=== PATIENT | male | born 1985 | race Caucasian/White ===

== ENCOUNTER → 2018-02-28 09:44 | Outpatient (CLI) | payer MEDICAID, SELFPAY ==
--- NOTE | 2018-02-28 09:45 | MRI_ITS ---
STUDY: MRI LUMBAR SPINE WITH AND WITHOUT CONTRAST REASON FOR EXAM: Male, 32 years old. Low back pain. Patient had spinal surgery 4 years ago. TECHNIQUE: Standardized fat and water weighted pulse sequences were obtained in the sagittal and axial planes. 10 ml of Gadavist contrast material was administered for the contrast portion of the examination. COMPARISON: CT of the lumbar spine dated March 17, 2017. FINDINGS: T12-L1: Normal endplates. Normal disc height, signal and morphology. Normal bilateral facet joints. Normal central canal and bilateral lateral recesses. Normal bilateral intervertebral neural foramina. There is an exaggerated lumbar lordosis. There is grade 1 spondylolisthesis at L5-S1. There is no substantial scoliosis. Normal conus medullaris that terminates at the L1 level. L1-2: Normal endplates. Normal disc height, signal and morphology. Normal bilateral facet joints. Normal central canal and bilateral lateral recesses. Normal bilateral intervertebral neural foramina. L2-3: Normal endplates. Normal disc height, signal and morphology. Normal bilateral facet joints. Normal central canal and bilateral lateral recesses. Normal bilateral intervertebral neural foramina. L3-4: There is a broad central disc protrusion and osteophyte complex. There is moderately severe degenerative arthropathy of the facet joints. There is mild central acquired canal stenosis. Neural foramina are severely narrowed with possible impingement of bilateral L3 nerve roots at the neural foramina. L4-5: There is mild annular disk bulge and osteophyte complex. There is mild degenerative arthropathy of the facet joints. Bilateral neuroforamina are narrowed without MR evidence for nerve impingement. There is no significant acquired central canal stenosis. L5-S1: There is severe narrowing of the disc. There are postoperative changes involving the posterior elements of L4 and L5. There is uncovering the disc related to the anterolisthesis. There is severe bilateral foraminal narrowing with probable impingement of bilateral L5 nerve roots at the neural foramina. Curvilinear areas of abnormal signal within the sacral ala suggests previous location of interpedicular screws. Imaged paraspinal soft tissues are within normal limits. Normal visualized paraspinous soft tissue structures. There is no demonstrated abnormal enhancement. MRI/Spine Lumbar W/WO Contrast IMPRESSION: 1. Postoperative changes at L4, L5 and S1. 2. Grade 1 spondylolisthesis at L5-S1. 3. Multilevel degenerative disc disease and degenerative arthropathy of the lumbar spine with neural foraminal narrowing and potential nerve impingement, as described. Electronically Signed: Nilda Bruner MD at 11:47 EDT , Service support ,
== END ==
PROVIDERS: Family Provider Nurse Practitioner Family; PCP Nurse Practitioner Family; Referring Provider Orthopaedic Surgery; Visit Provider Orthopaedic Surgery
DX: M51.16 Intervertebral disc disorders with radiculopathy, lumbar region (principal); M43.17 Spondylolisthesis, lumbosacral region
CPT/HCPCS: 72158; A9585

== ENCOUNTER 2018-04-14 12:00 | Outpatient (RCR) | payer MEDICAID, SELFPAY ==
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
--- NOTE | 2018-03-03 13:14 | HP.PTREVAL ---
Sharon Baez, It has been my pleasure to treat PIERRE REYNAGA over the last 9 visits for LOW BACK PAIN. Please see the progress note below for an update on the physical therapy plan of care! Subjective: PATIENT REPORTS HE IS A LITTLE BIT BETTER. HE REPORTS HIS LEG USE IS BETTER AND HE FEELS STRONGER IN HIS CORE. HE ALSO REPORTS HIS BLOOD PRESSURE HAS GONE DOWN TREMENDOUSLY SINCE STARTING POOL THERAPY TOO. HAD MRI WEDNESDAY AND WAITING ON APPOINTMENT WITH DR. BAEZ. NOT TOBACCO FREE YET BUT ALMOST THERE. PATIENT REPORTS HE FEELS THE POOL THERAPY IS HELPING HIM EVEN MORE THIS TIME THAN LAST TIME. Objective/Function: SURGERY PENDING WITH DR. BAEZ WHEN PATIENT IS TOBACCO FREE PER PATIENT REPORT. WOULD RECOMMEND CONTINUED AQUATIC THERAPY AT THIS TIME DUE TO PROGRESS MADE AND ROOM FOR FURTHER IMPROVEMENT PRIOR TO SX. PATIENT IS MAKING SLOW PROGRESS TOWARD SET PT GOALS AND DEMONSTRATES MORE ERECT POSTURE WITH GAIT TODAY, BETTER TOLERANCE TO GAIT ALLOWING HIM TO PARTICIPATE MORE IN ADLS AND HE IS REPORTING LESS PAIN IN CONJUNCTION WITH PARTICIPATING IN PRE IN THE POOL. UPON EXAM TODAY: PATIENT DEMO'S INDEP GAIT INTO PT WITH MILD INCREASED TRUNK FLEXION AND A MILD LIMP ON THE RIGHT LE. NO AD'S. INDEP TRANSFER SIT TO STAND WITHOUT UE ASSIST. Motor deficit: CLYDE HIPS 4/5, CLYDE KNEES 5/5, CLYDE ANKLES 5/5. PATIENT IS ABLE TO HEEL WALK AND TOE WALK. ROM deficit: TIGHT RIGHT HS. LEFT HS WFL. TIGHT CLYDE HIP FLEXORS. Reflexes: CLYDE QUAD DTR'S 2/3. UNABLE TO ELICIT CLYDE ACHILLES REFLEX'S. Dural Signs: POSITIVE CLYDE LE'S RIGHT > LEFT. Lumbar mvmt loss: NT. Core strength: POOR BUT IMPROVING WITH AQUATIC THERAPY. Palpation: PATIENT IS STILL VERY TENDER WITH LIGHT PALPATION OF THE ENTIRE LOWER THORACIC, LUMBAR, SACRAL AND PELVIC AREAS INTO RIGHT HIP. Plan Plan: POSTURE CORRECTION/STRENGTHENING, INSTRUCTION IN APPROPRIATE BODY MECHANICS AND ACTIVITY MODIFICATIONS. DLS WITH NEUTRAL SPINE ONLY. CLYDE LE ROM, STRETCHING AND STRENGTHENING. *DESENSITIZATION* OF BACK AND PELVIC REGIONS. HEP INSTRUCTION. Goals Goal 1:: DECREASE C/O SPINE AND RIGHT LE SX'S. Goal Time Frame: 6-8 Weeks Goal Progress: Progressing Goal 2:: IMPROVE PERSONAL CARE, LIFTING, WALKING, SITTING, STANDING, SLEEP, SOCIAL LIFE, TRAVEL AND EMPLOYMENT FUNCTION Goal Time Frame: 6-8 Weeks Goal Progress: Progressing Goal 3:: INSTRUCT IN PROPHYLAXIS Goal Time Frame: 6-8 Weeks Goal Progress: Progressing Anticipated Interventions Patient/Client Instruction: Educate patient on: Condition, Plan of Care, Risk Factors, Benefits of Fitness Program For the Purpose of:: To improve self management Therapeutic Exercise to Include: Strength training, Body mechanics, Postural training, Flexibilty training, In an aquatic setting, Active ROM, Dynamic Lumbar Stabilization For the Purpose of:: To decrease pain, To improve muscle performance and motor function, To increase tolerance to activity/condition/position, To improve ability of physical actions for home/community/work/leisure, To improve gait and locomotor functions Please do not hesitate to contact me at [phone] by phone or if you have questions or concerns regarding this new plan of care! Sincerely, Maggie Hoyos
--- NOTE | 2018-04-14 13:44 | HP.PTDCSUM_ITS ---
HP - PT D/C Summary It has been my pleasure to treat PIERRE REYNAGA under orders from Sharon Baez, for the diagnosis of LOW BACK PAIN for a total of 17 visit(s). Discharge Date: 04/14/18 Please see the following information for a summary of their discharge status. - Subjective Subjective: PATIENT REPORTS GOING UP STEPS (MY RIGHT LEG HAS MORE STRENGTH AND LESS PAIN), BENDING, DOING HOUSEWORK AND WALKING HAVE ALL IMPROVED SINCE STARTING PT. PATIENT REPORTS HE IS CONTINUING TO LOSE WEIGHT ON PURPOSE. SAW DR. BAEZ LAST WEEK - SHE STILL RECOMMENDS SURGERY AND THINKS SHE CAN REDUCE HIS PAIN BY ABOUT 50%. HE REPORTS SHE ALSO EXPLAINED THE RISKS. SHE IS RECOMMENDING BOTH SIDE AND POSTERIOR APPROACHES. HE REPORTS HE AND DR. BAEZ DEFINATELY SEE THE BENEFITS FROM AQUATIC THERAPY SO FAR AND THE PLAN IS TO RETURN TO AQUATIC THERAPY POST SURGERY. THE RECOMMENDATION IS FOR FUSION FROM L1 TO THE SACRUM. HE THINKS HE IS GOING TO GO AHEAD WITH SURGERY BUT HAS NOT BEEN SCHEDULED YET. NEXT APPOINTMENT WITH DR. BAEZ IS IN TWO WEEKS IF NEEDED. HOPING TO BE TOBACCO FREE BY TOMORROW. HAS TO BE TOBACCO FREE FOR AT LEAST 4 WEEKS BEFORE SURGERY. PATIENT REPORTS EVERYONE IS REALLY SURPRISED HOW MUCH STRONGER HE IS AND HOW MUCH BETTER HE IS MOVING SO HE IS HOPING SURGERY HELPS WITH THE PAIN. - Pain Lumbar Spine Pain Intensity (Out of 10): 5 RLE Pain Intensity (Out of 10): 3 - Overall Improvement % Improvement: 30 - Objective Objective/Function: PATIENT IS DEMONSTRATING INCREASED RIGHT LE STRENGTH, INCREASED RIGHT LE FLEXABILITY AND IMPROVED GAIT. HE IS ALSO MUCH LESS TENDER IN HIS BACK AND GAINING CORE STRENGTH. UPON EXAM TODAY: PATIENT DEMO'S INDEP GAIT INTO PT WITH VERY MILD INCREASED TRUNK FLEXION AND ACTUALLY NO LIMP ON THE RIGHT LE. PATIENT REPORTS HIS LIMP STARTED TO GO AWAY ABOUT 2 WEEKS AGO. NO AD'S. INDEP TRANSFER SIT TO STAND WITHOUT UE ASSIST. Motor deficit: RIGHT HIP 4/5, LEFT HIP 5/5, CLYDE KNEES 5/5, CLYDE ANKLES 5/5. PATIENT IS ABLE TO HEEL WALK AND TOE WALK. ROM deficit: RIGHT HS WFL. LEFT HS WFL. TIGHT CLYDE HIP FLEXORS. Reflexes: CLYDE QUAD DTR'S 2/3. UNABLE TO ELICIT CLYDE ACHILLES REFLEX'S. Dural Signs: POSITIVE CLYDE LE'S RIGHT > LEFT BUT MORE MILDLY POSITIVE THEN LAST RE- CHECK. Lumbar mvmt loss: NT. Core strength: POOR TO FAIR - SOME IMPROVEMENT SINCE EVAL. Palpation: PATIENT IS NOT NEAR TENDER WITH LIGHT PALPATION OF HIS BACK BUT THERE ARE STILL A COUPLE TENDER SPOTS MID INCISION, DISTAL END OF INCISION AND ALONG LEFT PARASPINALS TODAY (USUALLY MORE ON RIGHT)RIGHT HIP/BUTTOCK IS SPINNER TENDER TOO. LUMBAR OSWESTRY SCORE HAS IMPROVED TO 19. RECOMMEND PATIENT CONTINUE AQUATIC THERAPY INDEP' 3 TIMES A WEEK UNTIL SURGERY AND RESUME AFTER SURGERY WHEN OK'D BY DR. BAEZ - PATIENT IS AGREEABLE. - Goals Goal 1:: DECREASE C/O SPINE AND RIGHT LE SX'S. Goal Progress: Goal Met Goal 2:: IMPROVE PERSONAL CARE, LIFTING, WALKING, SITTING, STANDING, SLEEP, SOCIAL LIFE, TRAVEL AND EMPLOYMENT FUNCTION Goal Progress: Goal Met Goal 3:: INSTRUCT IN PROPHYLAXIS Goal Progress: Goal Met - Plan Plan: D/C TO INDEP POOL EX. - D/C Information If there are questions or concerns regarding this patient's physical therapy, please feel free to call me at [phone]. Thank you for the referral of this patient. Sincerely, Maggie Hoyos
== END 2018-04-14 19:00 | disposition home or self-care (01) ==
LOC: PT 12:00
PROVIDERS: Family Provider Nurse Practitioner Family; PCP Nurse Practitioner Family; Referring Provider Orthopaedic Surgery; Visit Provider Orthopaedic Surgery
DX: M54.5 Low back pain (principal)
CPT/HCPCS: 97113; 97162; 97530

== ENCOUNTER 2018-07-21 18:30 | Emergency (ER) | payer MEDICAID, SELFPAY ==
[2018-07-21 18:32] VITALS: BP 145/102; PULSE 94; RESP 17; TEMP 35.9; O2SAT 98; BMI 35.4
[2018-07-21 18:57] VITALS: RESP 18
--- NOTE | 2018-07-21 19:26 | ED.VISSUMM ---
- ER Visit Summary Date of Service: 07/21/18 Chief Complaint: Back pain History of Present Illness: The patient is a 32 M with 3 prior back pain surgeries presents with worsening of his back pain. He is in pain management but could not be seen for another 5-6 weeks. He denies any fevers or chills. He has no bowel or bladder compromise. He does not have urinary retention symptoms. He does not have pain in the suprapubic region. His pain does radiate to his right leg this is chronic he has some paresthesias in his right leg which is also chronic from prior surgeries. He denies any saddle anesthesia. Physical Examination: Patient has a soft and nontender abdomen, no suprapubic pain or mass. He is got a well-healed scar in the lumbar region. His pain is in the lumbar region. He has a positive straight leg test on the right, he has some paresthesias on the outer thigh region and inner calf region. He has 1+ reflex on the right 2+ reflex on the left, he has 1+ Achilles reflexes bilaterally he has normal plantar flexion of both feet normal dorsiflexion of both feet angry and toes. He has normal strength of both lower extremities. Rectal exam was done by me he is got normal rectal tone and sensation. Emergency Department Course and Treatment: Patient certainly has neurological symptoms but they are all chronic. Seems to be the issue today is pain. I gave him Dilaudid IM in the emergency department and was given Percocets for home. He can follow-up with his surgeon at [facility], apparently he is due to have another surgery in the next month. I talked to him and his mom about neurological symptoms if the neurological symptoms worsen he must come back. He knows that urinary retention, bowel compromise, saddle anesthesia or foot drop are signs to come right back to the emergency department. Because of his prior and likely near future surgery I will not give steroids. Disposition: Discharge stable condition Impression: [Back pain with sciatica] This note was generated with [employer] dictation software. It may contain incorrect words, spelling, and punctuation that were not noted in review of the chart prior to signing ED Disposition - Plan for ED Patient: Disposition: Home or Assisted Living Instructions: ED Low Back Pain Injury Prescriptions: Oxycodone HCl/Acetaminophen [Percocet 5/325] 1 tab PO Q6H PRN PRN 3 Days #12 tab PRN Reason: Pain Gabapentin [Neurontin] 600 mg PO TID #180 cap Additional Instructions: Follow up with your surgeon at [facility] as soon as possible
[2018-07-21] MEDS: HYDROmorphone 1 MG/ML Syringe IM (20:00)
[2018-07-21 20:36] VITALS: RESP 16; O2SAT 99
== END 2018-07-21 20:36 | disposition home or self-care (01) ==
LOC: ED 19:43
PROVIDERS: Emergency Provider Emergency Medicine; Family Provider Nurse Practitioner Family; PCP Nurse Practitioner Family
DX: M54.40 Lumbago with sciatica, unspecified side (principal); G89.29 Other chronic pain
CPT/HCPCS: 96372; 99283

== ENCOUNTER → 2018-08-02 08:15 | Outpatient (CLI) | payer MEDICAID, SELFPAY ==
[2018-08-02 08:08] VITALS: BMI 35.4
--- NOTE | 2018-08-02 08:16 | RAD_ITS ---
HISTORY: LOW BACK PAIN. PREV L5 SURGERY. RECENT FALL EXAM/TECHNIQUE: XR Spine Lumbar Min 4 Views: COMPARISON: None. FINDINGS: # of images incl. paperwork: 4 No acute fracture or dislocation or osseous destruction. Bilateral L5 spondylolysis and L5 laminectomy. 1.4 cm anterolisthesis of L4 on L5 which does not significantly change with flexion or extension. Otherwise alignment is anatomic. Marked facet degeneration L4-5 and L5-S1 again demonstrated. Mild degenerative changes. No acute findings in the soft tissues. RAD/L/S Spine Min 4 Views IMPRESSION: No acute findings. Bilateral L5 spondylolysis and L5 laminectomy. 1.4 cm anterolisthesis of L4 on L5 which does not significantly change with flexion or extension. at 1010 Reported and signed by: Fredy Rodriguez MD Electronically Signed: Fredy Rodriguez, at 10:08 EDT Tel , Service support ,
== END ==
PROVIDERS: Family Provider Nurse Practitioner Family; PCP Nurse Practitioner Family; Referring Provider Orthopaedic Surgery; Visit Provider Orthopaedic Surgery
DX: M48.062 Spinal stenosis, lumbar region with neurogenic claudication (principal)
CPT/HCPCS: 72110

== ENCOUNTER → 2018-09-01 15:18 | Outpatient (CLI) | payer MEDICAID, SELFPAY ==
[2018-08-02 08:08] VITALS: BMI 35.4
--- NOTE | 2018-09-01 15:20 | MRI_ITS ---
STUDY: MRI LUMBAR SPINE WITH AND WITHOUT CONTRAST REASON FOR EXAM: Male, 32 years old. Fall 6 months ago, right leg numbness TECHNIQUE: Standardized fat and water weighted pulse sequences were obtained in the sagittal and axial planes. 20 IV Dotarem was administered for the contrast portion of the examination. COMPARISON: 02/28/2018 FINDINGS: T12-L1: Normal endplates. Normal disc height, hydration and morphology. Normal bilateral facet joints. Normal central canal and bilateral lateral recesses. Normal bilateral intervertebral neural foramina. There is no substantial scoliosis. Normal conus medullaris that terminates at the L1 level. L1-2: Normal endplates. Normal disc height, hydration and morphology. Normal bilateral facet joints. Normal central canal and bilateral lateral recesses. Normal bilateral intervertebral neural foramina. L2-3: Normal endplates. Normal disc height, hydration and morphology. Normal bilateral facet joints. Normal central canal and bilateral lateral recesses. Normal bilateral intervertebral neural foramina. L3-4: Bulging annulus with mild central canal stenosis and moderate to severe left and moderate right foraminal stenoses. L4-5: Bilateral laminectomies. No residual compressive sequelae. Remote bilateral pedicle hardware defects. L5-S1: Grade 1 anterolisthesis, unchanged. Residual disc osteophyte complex and bilateral facet hypertrophy. Severe bilateral foraminal stenoses, unchanged. Mass effect on both exiting L5 nerve roots. Remote hardware defects in the sacrum. Normal visualized paraspinous soft tissue structures. MRI/Spine Lumbar W/WO Contrast IMPRESSION: Multilevel degenerative disease and postoperative change as described. Moderate to severe left foraminal stenosis at the L3-4 level. Severe bilateral foraminal stenoses at the L5-S1 level, with mass effect on both exiting L5 nerve roots. Electronically Signed: Terell Gu MD at 11:46 EDT Tel , Service support ,
== END ==
PROVIDERS: Family Provider Nurse Practitioner Family; PCP Nurse Practitioner Family; Referring Provider Orthopaedic Surgery; Visit Provider Orthopaedic Surgery
DX: M48.062 Spinal stenosis, lumbar region with neurogenic claudication (principal)
CPT/HCPCS: 72158; A9575

== ENCOUNTER → 2018-11-15 11:17 | Outpatient (CLI) | payer MEDICAID, SELFPAY ==
[2018-11-15 10:56] VITALS: BMI 35.4
--- NOTE | 2018-11-15 11:19 | RAD_ITS ---
STUDY: X-RAY - LUMBAR SPINE REASON FOR EXAM: Male, 33 years old. Pain TECHNIQUE: 2 view(s) of the lumbar spine were obtained. COMPARISON: 08/02/2018 FINDINGS: Bilateral posterior pedicle fusions at the L3 and L4 levels. Surgical fusion of the L3-4 disc space. L3-4 and L4-5 laminectomies. Stable grade 2 L5-S1 anterolisthesis. Degenerative disc disease at the L4-5 level. No new compression deformities are seen. Soft tissues are intact. RAD/Lumbar Spine 2 or 3 Views IMPRESSION: Multilevel degenerative disease and postoperative change as described. Stable grade 2 L5-S1 anterolisthesis. Electronically Signed: Terell Gu MD at 17:04 EDT Tel , Service support ,
== END ==
PROVIDERS: Family Provider Nurse Practitioner Family; PCP Nurse Practitioner Family; Referring Provider Orthopaedic Surgery; Visit Provider Orthopaedic Surgery
DX: Z98.1 Arthrodesis status (principal)
CPT/HCPCS: 72100

== ENCOUNTER → 2018-12-20 12:35 | Outpatient (CLI) | payer MEDICAID, SELFPAY ==
[2018-11-15 10:56] VITALS: BMI 35.4
--- NOTE | 2018-12-20 12:36 | RAD_ITS ---
STUDY: X-RAY - LUMBAR SPINE REASON FOR EXAM: Male, 33 years old. Postop fusion TECHNIQUE: 2 view(s) of the lumbar spine were obtained. COMPARISON: November 15, 2018 lumbar spine x-ray FINDINGS: There is exaggerated physiologic lordosis. There is no substantial scoliosis. There is a grade 2 spondylolisthesis at the level of L5-S1. There is a stable appearance of the lumbar spine fusion at the level of L4-L5. There is minimal spondylosis. There is degenerative change at T11-T12. There is a disc spacer at the level of L4-L5. The soft tissue structures are unremarkable. RAD/Lumbar Spine 2 or 3 Views IMPRESSION: Persistent grade 2 spondylolisthesis with spondylolysis at the level of L5-S1. Stable appearing lumbar spine fusion at the level of L4-L5. Electronically Signed: Roro Hickman MD at 22:49 EDT Tel , Service support ,
== END ==
PROVIDERS: Family Provider Nurse Practitioner Family; PCP Nurse Practitioner Family; Referring Provider Orthopaedic Surgery; Visit Provider Orthopaedic Surgery
DX: M43.17 Spondylolisthesis, lumbosacral region (principal); Z98.1 Arthrodesis status
CPT/HCPCS: 72100

== ENCOUNTER → 2019-03-21 11:02 | Outpatient (CLI) | payer MEDICAID, SELFPAY ==
[2019-03-21 10:58] VITALS: BMI 35.4
--- NOTE | 2019-03-21 11:02 | RAD_ITS ---
HISTORY: PAIN TECHNIQUE: Lumbar spine 2 views Number of images including paperwork: 2 COMPARISON: 12/20/2018 FINDINGS: VERTEBRAE: No acute fracture. Postoperative changes of L3-5 laminectomies. VERTEBRAL ALIGNMENT: No traumatic subluxation. Approximate 1.5 cm of anterolisthesis of L5 on S1. Exaggerated lumbar lordosis again seen. DISKS AND JOINTS: Spinal fusion noted at L3-4 with posterior rods, pedicle screws and a disc spacer. SOFT TISSUES: Unremarkable paraspinous soft tissues. RAD/Lumbar Spine 2 or 3 Views IMPRESSION: No acute osseous abnormality. Postoperative changes. Anterolisthesis at L5-S1 appear similar. at 2338 Reported and signed by: Kaye Hernandez MD Electronically Signed: Kaye Hernandez MD at 23:38 EST Tel , Service support ,
== END ==
PROVIDERS: Family Provider Nurse Practitioner Family; PCP Nurse Practitioner Family; Referring Provider Orthopaedic Surgery; Visit Provider Orthopaedic Surgery
DX: Z98.1 Arthrodesis status (principal)
CPT/HCPCS: 72100

== ENCOUNTER 2019-03-27 12:55 | Outpatient (RCR) | payer MEDICAID, SELFPAY ==
[2019-03-21 10:58] VITALS: BMI 35.4
== END 2019-03-27 19:00 | disposition home or self-care (01) ==
LOC: PT 12:55
PROVIDERS: Family Provider Nurse Practitioner Family; PCP Nurse Practitioner Family; Referring Provider Orthopaedic Surgery; Visit Provider Orthopaedic Surgery
DX: Z98.890 Other specified postprocedural states (principal)

== ENCOUNTER 2019-07-04 13:00 | Outpatient (RCR) | payer MEDICAID, SELFPAY ==
[2018-12-20 12:37] VITALS: BMI 35.4
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
--- NOTE | 2019-02-02 12:38 | HP.PTREVAL ---
Sharon Prajapati MD, It has been my pleasure to treat PIERRE REYNAGA over the last 7 visits for S/P LUMBAR FUSION. Please see the progress note below for an update on the physical therapy plan of care! Subjective: Muscular sore after last AT visit, But it felt really Objective/Function: Denies problems with new stretch HEP. Progressing all scap stabilizing tasks to HEP With written descriptions and O/GTB. Cues for abdominal bracing and reduced shldr elevation compensations - fair return. Instructed to complete in front of a mirror at home for improved technique. Plan Plan: f/u with new scap stab. exc. *x1 more visit before f/u with supervising PT. Goals Goal 1:: DECREASE C/O RIGHT AND CENTRAL LBP AND RIGHT CALF SX'S. Goal Time Frame: 4-6 Weeks Goal 2:: IMPROVE BENDING, LIFTING, STANDING, WALKING, ADL, SITTING, WORK AND RECREATIONAL FUNCTION Goal Time Frame: 4-6 Weeks Goal 3:: INSTRUCT IN PROPHYLAXIS Goal Time Frame: 4-6 Weeks Anticipated Interventions Patient/Client Instruction: Educate patient on: Condition, Plan of Care, Risk Factors, Benefits of Fitness Program For the Purpose of:: To improve self management Therapeutic Exercise to Include: Strength training, Body mechanics, Postural training, Flexibilty training, In an aquatic setting, Active ROM, Dynamic Lumbar Stabilization, Scapular Strength/Stabilization For the Purpose of:: To decrease pain, To increase ROM, To improve muscle performance and motor function, To increase tolerance to activity/condition/position, To improve ability of physical actions for home/community/work/leisure Please do not hesitate to contact me at [phone] by phone or if you have questions or concerns regarding this new plan of care! Sincerely, Maggie Hoyos, PT, Cert MDT
--- NOTE | 2019-02-02 13:55 | HP.PTREVAL ---
Sharon Prajapati MD, It has been my pleasure to treat PIERRE REYNAGA over the last 8 visits for S/P LUMBAR FUSION. Please see the progress note below for an update on the physical therapy plan of care! Subjective: PATIENT REPORTS THE THERAPY IS HELPINIG TREMENDOUSLY Objective/Function: PATIENT IS MAKING GREAT PROGRESS TOWARD ALL PT GOALS. HIS CORE AND LE STRENGTH IS IMPROVING, HIS BACK ROM HAS IMPROVED AND HIS ACTIVITY LEVEL IS INCREASING. HE IS BECOMING INDEP WITH A POOL EX PROGRAM AND I ANTICIPATE HIM BEING ABLE TO START TRANSITIONING TO INDEP POOL EX SOON. HE HAS A MEMBERSHIP HERE AT [email or web address] TO HELP WITH THAT TRANISITION. UPON EXAM TODAY HIS CORE STRENGTH IS STILL POOR BUT HE IS TOLERATING PRE IN THE POOL. LE STRENGTH IS 5/5 WITH MMT'ING EXCEPT RIGHT HIP 4/5. RIGHT CALF STILL HAS SOME DECREASED LIGHT TOUCH SENSATION. HE IS MUCH LESS TENDER IN HIS LOW BACK AND TENDERNESS IS MORE LOCALIZED TO THE LOWER LUMBAR REGION. Plan Plan: CONT PER POC Goals Goal 1:: DECREASE C/O RIGHT AND CENTRAL LBP AND RIGHT CALF SX'S. Goal Time Frame: 4-6 Weeks Goal Progress: Progressing Goal 2:: IMPROVE BENDING, LIFTING, STANDING, WALKING, ADL, SITTING, WORK AND RECREATIONAL FUNCTION Goal Time Frame: 4-6 Weeks Goal Progress: Progressing Goal 3:: INSTRUCT IN PROPHYLAXIS Goal Time Frame: 4-6 Weeks Goal Progress: Progressing Anticipated Interventions Patient/Client Instruction: Educate patient on: Condition, Plan of Care, Risk Factors, Benefits of Fitness Program For the Purpose of:: To improve self management Therapeutic Exercise to Include: Strength training, Body mechanics, Postural training, Flexibilty training, In an aquatic setting, Active ROM, Dynamic Lumbar Stabilization, Scapular Strength/Stabilization For the Purpose of:: To decrease pain, To increase ROM, To improve muscle performance and motor function, To increase tolerance to activity/condition/position, To improve ability of physical actions for home/community/work/leisure Please do not hesitate to contact me at [phone] by phone or if you have questions or concerns regarding this new plan of care! Sincerely, Maggie Hoyos, PT, Cert MDT
--- NOTE | 2019-02-28 12:34 | HP.PTDCSUM ---
HP - PT D/C Summary It has been my pleasure to treat PIERRE REYNAGA under orders from Sharon Baez MD, for the diagnosis of S/P LUMBAR FUSION for a total of 14 visit(s). Discharge Date: Please see the following information for a summary of their discharge status. - Subjective Subjective: PATIENT REPORTS HE HAS GOT A LOT OF FEELING BACK IN HIS RIGHT LEG AND IT IS GETTING STRONGER. F/U WITH DR. BAEZ MAR 21 2019 - Pain LUmbar Spine Pain Intensity (Out of 10): 5 - Overall Improvement % Improvement: 70 - Objective Objective/Function: ALL GOALS MET. PATIENT STILL HAS RIGHT LE WEAKNESS BUT IS INDEP WITH A WATER EX PROGRAM AND HAS A MEMBERSHIP THAT HE CAN USE TO CONTINUE INDEP WATER EX. UPON EXAM TODAY HE STILL HAS A POSTIVE RIGHT LE DURAL TEST ALSO. Lumbar mvmt loss: FLEX - MIN, EXT - SADAF, RSG MOD, LEFT SG - SADAF. - Goals Goal 1:: DECREASE C/O RIGHT AND CENTRAL LBP AND RIGHT CALF SX'S. Goal Progress: Progressing Goal 2:: IMPROVE BENDING, LIFTING, STANDING, WALKING, ADL, SITTING, WORK AND RECREATIONAL FUNCTION Goal Progress: Progressing Goal 3:: INSTRUCT IN PROPHYLAXIS Goal Progress: Progressing - Plan Plan: D/C TO INDEP WATER EX PROGRAM AND FOLLOW UP WITH DR. BAEZ. - D/C Information If there are questions or concerns regarding this patient's physical therapy, please feel free to call me at [phone]. Thank you for the referral of this patient. Sincerely, Maggie Hoyos, PT, Cert MDT
--- NOTE | 2019-03-27 14:05 | HP.PTREVAL ---
Sharon Prajapati MD, It has been my pleasure to treat PIERRE REYNAGA over the last 15 visits for S/P LUMBAR FUSION. Please see the progress note below for an update on the physical therapy plan of care! Subjective: PATIENT REPORTS HAVING A FOLLOW UP WITH DR. 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 HAS NOT WORKED SINCE MAR 2014. HE IS NOT ON DISABILITY. HE REPORTS THE ONLY RESTRICTION HE HAS NOW IS NO LIFTING > 40 LBS. PATIENT REPORTS THAT HE HAS BEEN CONTINUING INDEP WATER EX SINCE LAST PT VISIT 3 TIMES A WEEK. PETERSON PENDING WITH DR. BAE IN ABOUT 2 WEEKS. PATIENT REPORTS IT HAS BEEN 4 TO 5 YEARS SINCE HE HAS TRIED TO DO A LAND EX PROGRAM OTHER THAN HIS CURRENT HEP. Objective/Function: UPON EXAM TODAY: CLYDE LE DURAL SIGNS ARE NEGATIVE. Lumbar mvmt loss: FLEX - VERY MIN, EXT - SADAF, RSG MOD, LEFT SG - SADAF. PATIENT REPORTS MILD RIGHT LBP WITH LEFT SG TESTING AND AT THE END OF THE AVAILABLE RANGE INTO EXTENSION. WITH MMT'ING OF LE'S THERE IS ONLY MILD WEAKNESS OF THE RIGHT HIP COMPARED TO THE LEFT BUT MMT'ING IS 5/5 CLYDE OTHERWISE. RIGHT HIP 4/5. PATIENT TOLERATED ALL EX'S WELL AND STATED I CAN TELL I NEED SOME WORK BECAUSE I AM SHAKY WITH THE EX'S. Plan Plan: SLOW PROGRESSION TO THER EX ON LAND WITH AND WITHOUT GYM EQUIPMENT TOLERATED. POSTURE CORRECTION/STRENGTHENING, INSTRUCTION IN APPROPRIATE BODY MECHANICS AND ACTIVITY MODIFICATIONS. DLS STARTING WITH A NEUTRAL SPINE PROGRESSING ROM TOLERATED. CLYDE LE ROM, STRETCHING AND STRENGTHENING. HEP INSTRUCTION. Goals Goal 1:: DECREASE C/O RIGHT AND CENTRAL LBP AND RIGHT CALF SX'S. Goal Time Frame: 4-6 Weeks Goal Progress: Progressing Goal 2:: IMPROVE BENDING, LIFTING, STANDING, WALKING, ADL, SITTING, WORK AND RECREATIONAL FUNCTION Goal Time Frame: 4-6 Weeks Goal Progress: Progressing Goal 3:: INSTRUCT IN PROPHYLAXIS Goal Time Frame: 4-6 Weeks Goal Progress: Progressing Anticipated Interventions Patient/Client Instruction: Educate patient on: Condition, Plan of Care, Risk Factors, Benefits of Fitness Program For the Purpose of:: To improve self management Therapeutic Exercise to Include: Strength training, Body mechanics, Postural training, Flexibilty training, In an aquatic setting, Active ROM, Dynamic Lumbar Stabilization, Scapular Strength/Stabilization For the Purpose of:: To decrease pain, To increase ROM, To improve muscle performance and motor function, To increase tolerance to activity/condition/position, To improve ability of physical actions for home/community/work/leisure Please do not hesitate to contact me at [phone] by phone or if you have questions or concerns regarding this new plan of care! Sincerely, Maggie Hoyos, PT, Cert MDT
--- NOTE | 2019-05-09 12:25 | HP.PTREVAL_ITS ---
Sharon Baez MD, It has been my pleasure to treat PIERRE REYNAGA over the last 20 visits for S/P LUMBAR FUSION. Please see the progress note below for an update on the physical therapy plan of care! Subjective: PATIENT ACCIDENTALLY CAME AT THE WRONG TIME BUT WAS ABLE TO BE WORKED INTO SCHEDULE. PATIENT REPORTS HE IS STILL UNEMPLOYEED. 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 ANTICIPATES NO RESTRICTIONS STARTING JUN [address] BAEZ. WILL NOT BE SEEING DR. BAZE AGAIN UNTIL SEPTEMBER 2019. PETERSON 3 WEEKS AGO. HELPED. EVERYTHING IS GETTING BETTER. SLEEPING BETTER. STILL DOING WATER EX INDEP 3 TIMES A WEEK. 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 MILD INTERMITTENT AB PAIN. ABS WERE REALLY SORE AFTER LAST SESSION. Objective/Function: PATIENT IS CONTINUEING TO MAKE GOOD PROGRESS WITH PHYSICAL THERAPY. RIGHT LE STRENGTH IS IMRPOVING, PAIN IS ALMOST COMPLETELY GONE AND LUMBAR ROM IS IMRROVING. HE IS A GOOD CANDIDATE TO CONTINUE LAND PT. UPON EXAM TODAY: CLYDE LE DURAL SIGNS ARE NEGATIVE. Lumbar mvmt loss: FLEX - NIL, EXT - SADAF BUT HAS IMPROVED SINCE LAST RE-CHECK, RSG MIN TO MOD, LEFT SG - MOD. PATIENT DENIES BACK PAIN WITH LUMBAR ROM TESTING TODAY. WITH MMT'ING OF LE'S THERE IS ONLY MILD WEAKNESS OF THE RIGHT HIP COMPARED TO THE LEFT BUT MMT'ING IS 5/5 CLYDE OTHERWISE. RIGHT HIP 4/5. Plan Plan: CONT LAND PT PER POC FOR PROGRESSIONS 2X'S A WK X 2 WKS THEN 1X/WK X 4 WKS TO HELP PATIENT SAFELY TRANSITION TO INDEP LAND EX PROGRAM AND RETURN TO WORK. Goals Goal 1:: DECREASE C/O RIGHT AND CENTRAL LBP AND RIGHT CALF SX'S. Goal Time Frame: 4-6 Weeks Goal Progress: Goal Met Goal 2:: IMPROVE BENDING, LIFTING, STANDING, WALKING, ADL, SITTING, WORK AND RECREATIONAL FUNCTION Goal Time Frame: 4-6 Weeks Goal Progress: Progressing Goal 3:: INSTRUCT IN PROPHYLAXIS Goal Time Frame: 4-6 Weeks Goal Progress: Progressing Anticipated Interventions Patient/Client Instruction: Educate patient on: Condition, Plan of Care, Risk Factors, Benefits of Fitness Program For the Purpose of:: To improve self management Therapeutic Exercise to Include: Strength training, Body mechanics, Postural tra ining, Flexibilty training, In an aquatic setting, Active ROM, Dynamic Lumbar Stabilization, Scapular Strength/Stabilization For the Purpose of:: To decrease pain, To increase ROM, To improve muscle performance and motor function, To increase tolerance to activity/condition/position, To improve ability of physical actions for home/community/work/leisure Please do not hesitate to contact me at [phone] by phone or if you have questions or concerns regarding this new plan of care! Sincerely, Maggie Hoyos, PT, Cert MDT
--- NOTE | 2019-07-04 13:50 | HP.PTDCSUM ---
HP - PT D/C Summary It has been my pleasure to treat PIERRE REYNAGA under orders from Sharon Prajapati MD, for the diagnosis of S/P LUMBAR FUSION for a total of 28 visit(s). Discharge Date: Please see the following information for a summary of their discharge status. - Subjective Subjective: PATIENT REPORTS HE IS STILL UNEMPLOYEED. 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 ANTICIPATES NO RESTRICTIONS STARTING JUN [address] PRAJAPATI. WILL NOT BE SEEING DR. PRAJAPATI AGAIN UNTIL SEPTEMBER 2019 - PATIENT NOT SURE IF HE IS RELEASED BY DR. PRAJAPATI FOR FULL DUTY YET OR NOT. STATES DR. BAE HAS NOT RELEASED HIM TO FULL DUTY YET. STATES DR. 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 ANOTHER INJECTION PENDING NEXT MONTH IN LOW BACK. PATIENT REPORTS EVERYTHING IS STILL GETTING BETTER. STATES HE IS GETTING STRONGER AND MORE ENERGY. SLEEPING GOOD WITH MEDICATION. STILL DOING WATER EX INDEP 3 TIMES A WEEK. 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 PLANS TO CALL DR. PRAJAPATI FOR CLARIFICATION ON WORK RESTRICTIONS. STATES HE HAS TROUBLE BENDING OVER IN THE MORNING SOMETIMES BUT OTHERWISE UNLIMITED ACTIVITY. WENT TO [facility] MAY [address] - [address] WITH OK FROM DR. PRAJAPATI. TOLERATED VACATION WELL. STATES THERE WERE DAYS HE WALKED 11 MILES AND HE WAS TIRED BUT NOT IN PAIN. I DON'T REALLY EVEN HAVE A LIMP ANYMORE. STATES HE HAS ALREADY STARTED DOING HIS GYM PROGRAM INDEP'LY ONCE A WEEK IN CONJUCTION WITH PT SESSIONS AND IT IS GOING WELL. PATIENT REPORTS HE IS GOOD TO GO ON HIS OWN NOW. PLANS TO CONTINUE 2-3 TIMES A WEEK IN THE POOL AND 2-3 TIMES A WEEK IN THE GYM INDEP;LY HERE AT [facility]. - Pain LUmbar Spine Pain Intensity (Out of 10): 0 - Overall Improvement % Improvement: 80 - Objective Objective/Function: PATIENT WAS SEEN TODAY FOR RE-ASSESSMENT OF PROGRESS TOWARD THE SET PT GOALS AND THE NEED FOR FURTHER PHYSICAL THERAPY VS READINESS FOR DISCHARGE. ALL PT GOALS HAVE BEEN MET AND PATIENT IS APPROPRIATE FOR DISCHARGE TO INDEP EX AT THIS TIME WITHIN ANY PHYSICIAN RESTRICTIONS. UPON EXAM TODAY: CLYDE LE DURAL SIGNS ARE NEGATIVE. Lumbar mvmt loss: FLEX - NIL, EXT - MOD, RSG VERY MIN, LEFT SG - MIN TO MOD. PATIENT DENIES BACK PAIN WITH LUMBAR ROM TESTING TODAY. STRENGTH: CLYDE LE'S 5/5 WITH MMT'ING. - Goals Goal 1:: DECREASE C/O RIGHT AND CENTRAL LBP AND RIGHT CALF SX'S. Goal Progress: Goal Met Goal 2:: IMPROVE BENDING, LIFTING, STANDING, WALKING, ADL, SITTING, WORK AND RECREATIONAL FUNCTION Goal Progress: Goal Met Goal 3:: INSTRUCT IN PROPHYLAXIS Goal Progress: Goal Met - Plan Plan: D/C TO INDEP EX. PATIENT AGREEABLE. - D/C Information If there are questions or concerns regarding this patient's physical therapy, please feel free to call me at [phone]. Thank you for the referral of this patient. Sincerely, Maggie Hoyos, PT, Cert MDT
== END 2019-07-04 19:00 | disposition home or self-care (01) ==
LOC: PT 13:00
PROVIDERS: Family Provider Nurse Practitioner Family; PCP Nurse Practitioner Family; Referring Provider Orthopaedic Surgery; Visit Provider Orthopaedic Surgery
DX: Z98.1 Arthrodesis status (principal)
CPT/HCPCS: 97110; 97113; 97162; 97164; 97530

== ENCOUNTER → 2019-10-31 10:16 | Outpatient (CLI) | payer MEDICAID, SELFPAY ==
[2019-10-31 10:14] VITALS: BMI 35.4
--- NOTE | 2019-10-31 10:16 | RAD_ITS ---
STUDY: X-RAY - LUMBAR SPINE REASON FOR EXAM: Male, 34 years old. LOWER BACK SURGERY, 6 MO FOLLOW UP TECHNIQUE: 2 view(s) of the lumbar spine were obtained. COMPARISON: 03/21/2019 FINDINGS: Stable surgical hardware from pedicle screw fusion surgery at L3 and L4. Stable synthetic disc at L3-4. Normal lumbar lordosis. There is no substantial scoliosis. There is a normal alignment of the vertebrae from L1 to L5 stable grade 1 spondylolisthesis at L5/S1. There is multilevel endplate spondylosis of the lumbar vertebrae. Normal disc space heights. There is no demonstrated fracture. The soft tissue structures are unremarkable. RAD/Lumbar Spine 2 or 3 Views IMPRESSION: Stable postsurgical changes at L3-4. No hardware complications or failure Stable grade 1 spondylolisthesis at L5/S1 No acute abnormalities Electronically Signed: Alber Harris MD at 10:30 EDT , Service support ,
== END ==
PROVIDERS: PCP Nurse Practitioner Family; Referring Provider Orthopaedic Surgery; Visit Provider Orthopaedic Surgery
DX: M54.5 Low back pain (principal)
CPT/HCPCS: 72100

== ENCOUNTER 2021-12-14 09:33 | Emergency (ER) | payer MEDICAID, SELFPAY ==
[2021-12-14 09:33] VITALS: BP 166/124; PULSE 120; RESP 16; TEMP 36.9; O2SAT 99; BMI 32.5
[2021-12-14 09:35] VITALS: BP 166/124; PULSE 120; RESP 16; TEMP 36.9; O2SAT 99
--- NOTE | 2021-12-14 10:23 | EX.ED.DYSGE1 ---
HPI History of Present Illness Chief Complaint: Cellulitis Narrative Narrative: Patient presents with right leg wound. He felt something bite him about 2 days ago and has had pain since. He now developed some redness and swelling around the anterior carson region where his bite was. No fevers or chills. [facility] Medical History (Updated 12/14/21 @ 10:[address] Obinna Lloyd MD) Hypertension Home Medications cyclobenzaprine 10 mg tablet 10 mg PO Q8H 07/06/17 [History Last Taken Unknown] metoprolol succinate 25 mg tablet,extended release 24 hr 25 mg PO ONCE 07/06/17 [History Last Taken Unknown] alprazolam 0.5 mg tablet 0.5 mg PO DAILY 07/21/18 [History Last Taken Unknown] gabapentin 300 mg capsule 300 mg PO TID 07/21/18 [History Last Taken Unknown] gabapentin 300 mg capsule 600 mg PO TID #180 caps 07/21/18 [Rx Last Taken Unknown] lisinopril 20 mg-hydrochlorothiazide 25 mg tablet 1 ea PO DAILY 07/21/18 [History Last Taken Unknown] oxycodone 5 mg tablet 5 mg PO Q4H PRN pain #20 tabs 10/07/18 [Rx Last Taken Unknown] buprenorphine 15 mcg/hour weekly transdermal patch 1 patch transdermal QWEEK 11/15/18 [History Last Taken Unknown] cephalexin 500 mg capsule 500 mg PO Q6H #28 caps 12/14/21 [Rx Last Taken Unknown] sulfamethoxazole 800 mg-trimethoprim 160 mg tablet (Bactrim DS) 1 tab PO BID #14 tabs 12/14/21 [Rx Last Taken Unknown] Allergy/AdvReac Type Severity Reaction Status Date / Time No Known Allergies Allergy Verified 12/14/21 09:36 Surgical History History of lumbar fusion Social History (Updated 10/31/19 @ 11:[address] Sharon Prajapati MD) Smoking Status: Never smoker ROS ROS ED ROS Narrative Past medical history: Reviewed Medications: Reviewed Social history: Noncontributory Review of systems: All systems negative except as indicated General: No fever Cardiovascular: No chest pain Respiratory: No shortness of breath or cough Gastrointestinal: No abdominal pain, nausea vomiting or diarrhea Genitourinary: No dysuria Musculoskeletal: As in HPI Skin: As in HPI Neurological: No memory loss, confusion or any focal weakness Psych: No recent behavioral changes Hematologic: No easy bleeding or easy bruising EXAM Physical Exam Narrative Exam Narrative: Physical exam General: He appears anxious Head: Normocephalic, Atraumatic Eyes: Conjunctiva not pale ENT: Moist mucous membranes Neck: Supple, Nontender, No lymphadenopathy Cardiovascular: Regular rate, Regular rhythm Respiratory: No distress, CTA bilaterally Abdomen: Soft, Nontender, Nondistended Back: Nontender, Normal Inspection. Negative for: CVA tenderness Extremities: There is a 5 cm area on the anterior carson on the right of erythema with some calor there is some swelling but no obvious induration or fluctuance. Skin: As above Neurological: Alert, Normal Strength, Normal Sensation Psychological: Normal affect Const Vital Signs: 12/14/21 09:33 12/14/21 09:35 Temperature 98.5 F 98.5 F Temperature Source Temporal Temporal Pulse Rate 120 H 120 H Respiratory Rate 16 16 Blood Pressure 166/124 H 166/124 H Blood Pressure Mean 138 Pulse Ox 99 99 Oxygen Delivery Method Room Air Room Air MDM MDM MDM Narrative Medical decision making narrative: I used a needle to probe, there is no pus at this time there is no evidence of an abscess I do not have to incise and drain however in my experience some of these do progress to an abscess despite antibiotic treatment I did tell him that if he gets worse he needs to return for possible drainage. I will start him on antibiotics, he initially had hypertension and tachycardia was quite apprehensive although he has not taken his antihypertensives today. I told him to follow-up with his PCP for this Discharge Plan Triage Chief Complaint: Cellulitis ED Provider: Obinna Lloyd Dx/Rx/DC Orders Clinical Impression: Cellulitis, Hypertension Instructions: Cellulitis, ED High Blood Pressure Hypertension Prescriptions: New cephalexin 500 mg capsule 500 mg PO Q6H Qty: 28 0RF sulfamethoxazole-trimethoprim [Bactrim DS] 800-160 mg tablet 1 tab PO BID Qty: 14 0RF No Action metoprolol succinate 25 mg tablet extended release 24 hr 25 mg PO ONCE cyclobenzaprine 10 mg tablet 10 mg PO Q8H buprenorphine 15 mcg/hour patch weekly 1 patch transdermal QWEEK alprazolam 0.5 mg tablet 0.5 mg PO DAILY Label Comments: Take 1 tablet by mouth twice a day gabapentin 300 capsule 300 mg PO TID lisinopril-hydrochlorothiazide 1 EACH tablet 1 ea PO DAILY gabapentin 300 MG capsule 600 mg PO TID Qty: 180 0RF oxycodone 5 mg tablet 5 mg PO Q4H PRN (Reason: pain) Qty: 20 0RF Primary Care Provider: Dorothy Phillip NP Referrals: Dorothy Phillip NP, [employer] [Primary Care Provider] - 3-5 Days Disposition Disposition: Home, Self Care
[2021-12-14] MEDS: Cephalexin 250 MG Capsule 500 MG PO (10:30)
[2021-12-14] MEDS: Smz/Tmp Ds Tablet 1 TABLET PO (10:30)
== END 2021-12-14 10:33 | disposition home or self-care (01) ==
PROVIDERS: Emergency Provider Emergency Medicine; PCP Nurse Practitioner Family; Visit Provider Emergency Medicine
DX: L03.115 Cellulitis of right lower limb (principal); I10 Essential (primary) hypertension; Z79.899 Other long term (current) drug therapy
CPT/HCPCS: 99283